=== PATIENT | male | born 1950 | race Asian ===

== ENCOUNTER 2018-01-15 20:23 | Emergency (ER) | payer BC, OTHER ==
[2018-01-15] MEDS: DIPHTH/TET/ACEL PERTUSS (ADULT) 0.5 ML VIAL IM* (22:31)
[2018-01-15] MEDS: BACITRACIN 0.9 GM OINT TOP (22:57)
[2018-01-16] MEDS: HYDROCODONE/APAP (10/325) TAB PO (01:01)
== END 2018-01-16 01:03 | disposition home or self-care (01) ==
LOC: FTE 01-16 01:03
DX: S06.0X0A Concussion without loss of consciousness, initial encounter (principal); S00.83XA Contusion of other part of head, initial encounter; I10 Essential (primary) hypertension; W01.0XXA Fall on same level from slipping, tripping and stumbling without subsequent striking against object, initial encounter; Y92.9 Unspecified place or not applicable; Z23 Encounter for immunization; Z98.61 Coronary angioplasty status
CPT/HCPCS: 70450; 70486; 90471; 90715; 99284-25